=== PATIENT | female | born 1960 | race Caucasian/White ===

== ENCOUNTER → 2019-01-25 | Outpatient (CLI) | payer OTHER ==
[2019-01-25 13:25] VITALS: BP 130/84; PULSE 69; RESP 16; TEMP 97.6; BMI 36.7
--- NOTE | 2019-01-25 15:50 | P.BASOAP ---
Subjective Progress Note Date: 01/25/19 Principal diagnosis: Morbid obesity Patient presents to the bariatric center with complaints of intermittent vomiting and reflux. Patient feels her band is likely too tight. She is actually lost some weight recently by going to medical weight loss clinic. She states she is not able to eat good protein because of the band being as tight as it is. She is interested in band removal. Has pain occasionally. She has belching more. Per the previous charts she should have 6.3 mL in her band. Objective - Vital Signs Vital signs: Vital Signs Temp 97.6 F 01/25/19 13:22 Pulse 69 01/25/19 13:22 Resp 16 01/25/19 13:22 BP 130/84 01/25/19 13:22 Pulse Ox Intake & Output 01/24/19 01/25/19 01/25/19 18:59 06:59 18:59 Weight 88.139 kg - Exam Abdomen: Soft, nontender, nondistended Assessment/Plan (1) Morbid obesity Narrative/Plan: Options reviewed with the patient. Will empty her band at this time. We'll schedule for lap band removal.The patient's lap band port was palpated. The site was aseptically prepped. The Salomon needle was advanced into the port. A total of 5 ml of fluid was removed. No additional fluid present. Pressure was held and a sterile dressing was applied. Plan: Date: 01/25/19 Initial Weight: 116.573 kg Initial BMI: 48.5 Current Weight: 88.139 kg Current BMI: 36.7 Type of Surgery: Total Volume in Band: 0 Previous Volume: Volume Removed: 5 Volume Added: Band Size:
== END | disposition home or self-care (01) ==
LOC: BARWHC3 13:09
PROVIDERS: ATTEND Surgery
DX: Z46.51 Encounter for fitting and adjustment of gastric lap band (principal); E66.01 Morbid (severe) obesity due to excess calories; Z68.36 Body mass index [BMI] 36.0-36.9, adult
CPT/HCPCS: 99212

== ENCOUNTER 2019-03-04 11:01 | Day surgery (SDC) | payer OTHER ==
[2019-02-24 15:48] VITALS: BMI 36.8
[~2019-03-04 11:01] MED LIST: DEXAMETHASONE SOD PHOSPHATE 10 MG/ML 1 ML VIAL IV ONE; LIDOCAINE 1% 20 ML VIAL (10MG/ML) FOR IV START INTRADERMA PRN; ONDANSETRON 4 MG/2 ML VIAL IVP ONE
[2019-03-04 11:21] VITALS: TEMP 97.5
[2019-03-04] MEDS: LACTATED RINGERS 1,000 ML IV SCH ×2 (11:34→12:09)
--- NOTE | 2019-03-04 11:47 | P.GSHP ---
History of Present Illness H&P Date: 03/04/19 Chief Complaint: band intolerance intermittent vomiting Patient here today for lap band removal. She was seen last in January of this year. She was complaining of intermittent vomiting and reflux. Beulah like her band was too tight. Unable to tolerate much protein. 5 mL was removed from the patient's port at that time. Patient remains interested in band removal. Not interested in conversion to alternative bariatric surgery. Past Medical History Past Medical History: Asthma, Hypertension, Thyroid Disorder Additional Past Medical History / Comment(s): back pain, constipation, Lap Band inserted 2006. History of Any Multi-Drug Resistant Organisms: None Reported Past Surgical History: Bariatric Surgery, Hysterectomy Additional Past Surgical History / Comment(s): lap band 2006, partial hysterectomy, exploratory surgery for infertility. Past Anesthesia/Blood Transfusion Reactions: No Reported Reaction Past Psychological History: No Psychological Hx Reported Smoking Status: Never smoker Past Alcohol Use History: Rare Past Drug Use History: None Reported - Past Family History Father Family Medical History: Cancer Mother Family Medical History: Cancer Medications and Allergies Home Medications Medication Instructions Recorded Confirmed Type Levothyroxine Sodium [Synthroid] 88 mcg PO DAILY 01/07/19 03/04/19 History Phentermine HCl 37.5 mg PO DAILY 01/07/19 03/04/19 History Triamterene/Hydrochlorothiazid 1 tab PO DAILY 01/07/19 03/04/19 History [Triamterene-Hctz 37.5-25 mg Tb] Cholecalciferol (Vitamin D3) 5,000 unit PO DAILY 02/24/19 03/04/19 History [Vitamin D3] Allergies Allergy/AdvReac Type Severity Reaction Status Date / Time No Known Allergies Allergy Verified 03/04/19 11:24 Surgical - Exam Vital Signs Temp Pulse Resp BP Pulse Ox 97.5 F L 55 L 20 156/70 100 03/04/19 11:18 03/04/19 11:18 03/04/19 11:18 03/04/19 11:18 03/04/19 11:18 Physical exam: General: Well-developed, well-nourished HEENT: Normocephalic, sclerae nonicteric Abdomen: Nontender, nondistended Extremities: No edema Neuro: Alert and oriented Assessment and Plan (1) Intermittent vomiting Narrative/Plan: Will proceed with laparoscopic, possible open lap band removal at this time. Risks of bleeding, infection, intestinal perforation, persistent vomiting, persistent reflux, weight gain, conversion to an open procedure reviewed. She understands and wishes to proceed. Current Visit: Yes Status: Acute Code(s): R11.10 - VOMITING, UNSPECIFIED SNOMED Code(s): 663041799
[2019-03-04] MEDS ORDERED: HEPARIN SODIUM,PORCINE 5,000 UNIT/ML 1 ML VIAL SQ ONE (11:55)
[2019-03-04] MEDS ORDERED: ROCURONIUM BROMIDE 10 MG/ML 10 ML VIAL IV ONE (12:07)
[2019-03-04] MEDS ORDERED: ePHEDrine SULFATE/0.9% NACL/PF 50 MG/5 ML SYRINGE IV ONE (12:07)
[2019-03-04] MEDS ORDERED: PHENYLEPHRINE-0.9% NACL SYG 1 MG/10 ML SYRINGE ONE (12:07)
[2019-03-04] MEDS ORDERED: LIDOCAINE 1% INJ 10MG/ML (20 ML MDV) ONE (12:07)
[2019-03-04] MEDS ORDERED: NEOSTIGMINE 1 MG/ML 10 ML VIAL ONE (12:07)
[2019-03-04] MEDS ORDERED: GLYCOPYRROLATE 0.2 MG/ML 2 ML VIAL ONE (12:07)
[2019-03-04] MEDS ORDERED: MIDAZOLAM 2 MG/2 ML VIAL ONE (12:07)
[2019-03-04] MEDS ORDERED: PROPOFOL 10 MG/ML 20 ML VIAL IV ONE (12:07)
[2019-03-04] MEDS ORDERED: fentaNYL (PF) 50 MCG/ML 2 ML AMP ONE (12:07)
[2019-03-04] MEDS ORDERED: BUPIVACAINE (PF) 0.25% 30 ML VIAL SQ ONE ×2 (12:37)
[2019-03-04] MEDS ORDERED: LACTATED RINGERS 1,000 ML IV ONE (12:59)
[2019-03-04] MEDS ORDERED: HYDROcodone/APAP 5-325MG 1 EACH TAB PO PRN (13:23)
[2019-03-04] MEDS ORDERED: NALOXONE 0.4 MG/ML 1 ML VIAL IV PRN (13:23)
--- NOTE | 2019-03-04 13:25 | P.OP ---
Date of Procedure: 03/04/19 Procedure(s) Performed: PREOPERATIVE DIAGNOSIS: Band intolerance/abdominal pain POSTOPERATIVE DIAGNOSIS: Same PROCEDURE: Laparoscopic lap band removal SURGEON: Jericho EBL: Minimal ANESTHESIA: General COMPLICATIONS: None OPERATIVE PROCEDURE: The patient was brought and placed on the operating room table in the supine position. The patient was placed under general anesthesia at that time. The patient was then placed in lithotomy. The abdomen was prepped and draped in the usual sterile fashion. The previous port incision was localized and then incised using a scalpel. The port was easily excised using electrocautery. Entrance into the perineal cavity occurred using a 5 mm optical trocar through the old trocar entrance site. Insufflation took place to 15 mmHg. A right subxiphoid 5 mm trocar was placed. This was then removed and the medium Allison hook was used to elevate the left lobe of the liver anteriorly. An additional 5 mm trocar was placed under direct visualization in the left lateral upper quadrant. The original 5 mm trocar was switched to a 15 mm trocar. A additional 5 mm trocar was placed in the right upper quadrant under direct dilatation. There were adhesions to the band in the buccal that were lysed using electrocautery. The band was then cut using the laparoscopic joselin. The band was then removed easily in 2 portions through the 15 mm trocar site. The stomach itself was inspected and revealed no evidence of erosion or prolapse. The trochars were removed. The fascia at the 15 mm site was closed using a Jeancarlos-Scar [id number] 0 Vicryl stitch. The subcutaneous tissues at the port site was closed using a 3-0 Vicryl suture. The skin at all 4 incision sites were closed using 4-0 Monocryl sutures. Skin glue was then applied. DISPOSITION: Stable to recovery room
[2019-03-04 13:41] VITALS: RESP 16
[2019-03-04] MEDS: HYDROmorphone 0.5 MG/0.5 ML SYRINGE IVP PRN ×2 (13:57→14:41)
[2019-03-04 15:56] VITALS: BP 115/57; PULSE 74
== END 2019-03-04 16:17 | disposition home or self-care (01) ==
LOC: OR 11:01
PROVIDERS: ATTEND Surgery
DX: K95.09 Other complications of gastric band procedure (principal); K21.9 Gastro-esophageal reflux disease without esophagitis; I10 Essential (primary) hypertension; J45.909 Unspecified asthma, uncomplicated; E07.9 Disorder of thyroid, unspecified; Z98.84 Bariatric surgery status; Z90.710 Acquired absence of both cervix and uterus; Z79.890 Hormone replacement therapy; Z79.899 Other long term (current) drug therapy; Z80.9 Family history of malignant neoplasm, unspecified
CPT/HCPCS: 43774; J2250; J1644; J1100; J2710; J0690; J2405; J2001; J3010; J2370; J2704; J1170

== ENCOUNTER → 2019-03-08 | Outpatient (CLI) | payer OTHER ==
[2019-03-08 13:24] VITALS: BP 147/72; PULSE 67; RESP 16; TEMP 98.1; BMI 36.2
--- NOTE | 2019-03-08 17:20 | P.BASOAP ---
Subjective Progress Note Date: 03/08/19 Principal diagnosis: Morbid obesity Patient returns after recent lap band removal. Doing well at this time. Some constipation although that is improved. Pain is well-controlled. Some belching. No vomiting. Objective - Vital Signs Vital signs: Vital Signs Temp 98.1 F 03/08/19 13:20 Pulse 67 03/08/19 13:20 Resp 16 03/08/19 13:20 BP 147/72 03/08/19 13:20 Pulse Ox Intake & Output 03/07/19 03/08/19 03/08/19 18:59 06:59 18:59 Weight 87.09 kg - Exam Abdomen: Soft, nondistended, incisions clean and dry Assessment/Plan (1) Morbid obesity Narrative/Plan: Patient doing well at this time. Gradually resume normal activities. Diet as tolerated. Plan: Date: 03/08/19 Initial Weight: 116.573 kg Initial BMI: 48.5 Current Weight: 87.09 kg Current BMI: 36.2 Type of Surgery: Total Volume in Band: 0 Previous Volume: 0 Volume Removed: 0 Volume Added: 0 Band Size:
== END ==
LOC: BARWHC3 12:48
PROVIDERS: ATTEND Surgery
DX: E66.01 Morbid (severe) obesity due to excess calories (principal); Z68.36 Body mass index [BMI] 36.0-36.9, adult
CPT/HCPCS: 99211